=== PATIENT | female | born 1980 | race Caucasian/White ===

== ENCOUNTER 2017-12-31 09:16 | Emergency (ER) | payer SELFPAY ==
[~2017-12-31] VITALS: Ht 165.1 cm; Wt 73.5 kg
[2017-12-31 09:20] VITALS: BP 124/71
[2017-12-31] MEDS ORDERED: cefTRIAXone 1,000 MG in LIDOCAINE 1% ***ER ONLY *** 2.1 ML IM ONE (09:40)
[2017-12-31] MEDS ORDERED: KETOROLAC 60 MG/2 ML VIAL IM ONE (09:40)
[2017-12-31] MEDS ORDERED: cefTRIAXone 1,000 MG VIAL ONE (09:50)
[2017-12-31] MEDS ORDERED: LIDOCAINE MPF 1% - **ER/OR** 5 ML ONE (09:56)
[2017-12-31 10:15] VITALS: BP 122/69
== END 2017-12-31 10:15 | disposition home or self-care (01) ==
LOC: MED 09:16
DX: N30.90 Cystitis, unspecified without hematuria (principal)
CPT/HCPCS: 81002; 81025; 96372; 99284; J0696; J1885; J2001

== ENCOUNTER 2019-08-07 18:30 | Emergency (ER) | payer MEDICAID ==
[~2019-08-07] VITALS: Ht 162.6 cm; Wt 79.4 kg
[2019-08-07 19:02] VITALS: BP 152/79
--- NOTE | 2019-08-07 19:05 | NUR ---
URINE CUP HANDED TO PT FOR SAMPLE
[2019-08-07 19:45] LABS: APPEARANCE,URINE CLEAR (CLEAR); BILIRUBIN,URINE NEGATIVE (NEGATIVE); BLOOD, URINE NEGATIVE (NEGATIVE); COLOR,URINE YELLOW (YELLOW); LEUKOCYTE ESTERASE ,URINE 1+ (NEGATIVE); NITRITE, URINE NEGATIVE (NEGATIVE); UGLUCOSE NEGATIVE (NEGATIVE)
--- NOTE | 2019-08-07 19:45 | NUR ---
PT APPEARS TO BE IN MILD DISTRESS. PT C/O EPIGASTRIC PAIN THAT RADIATES TO BACK. PT ALSO C/O SOB. VERBAL ORDER FROM DR. SALDANA FOR EKG. PT VSS. PT STATES SOME NAUSEA. DENIES V/D. DENIES RECENT FEVER. DENIES N/V/D; SKIN IS PINK/WARM/DRY; AAOX4 WITH EVEN AND STEADY GAIT; LUNGS CLEAR BL; HR EVEN AND REGULAR; PT DENIES ANY FEVER, CP, OR COUGH AT THIS TIME; PATIENT STATES PAIN OF 10/10 AT THIS TIME; VSS; PATIENT POSITIONED FOR COMFORT; HOB ELEVATED; BEDRAILS UP X1; BED DOWN. ER MD MADE AWARE OF PT STATUS.
[2019-08-07 20:12] LABS: RBC,URINE 0 /HPF (0-5)
--- NOTE | 2019-08-07 21:45 | NUR ---
No changes from previous assessment. Pt appears to be in no distress. Waiting for Dr. Rosa to see patient.
[2019-08-07] MEDS ORDERED: KETOROLAC 30 MG/ML VIAL IVP ONE (21:55)
[2019-08-07 22:08] LABS: BASOPHILS % (AUTO) 0.5 % (0.0-2.0); EOSINOPHILS % (AUTO) 0.9 % (0.0-4.0); HEMATOCRIT 29.7 % (36-48); HEMOGLOBIN 9.2 g/dL (12.0-16.0); LYMPHOCYTES # (AUTO) 1.6 K/uL (2.5-16.5); LYMPHOCYTES % (AUTO) 29.9 % (20.5-51.1); MEAN CORPUSCULAR HEMOGLOBIN 23 pg (27-31); MEAN CORPUSCULAR HGB CONC 31 g/dL (33-37); MEAN CORPUSCULAR VOLUME 74.8 fL (80-94); MONOCYTES # (AUTO) 0.5 K/uL (0.8-1.0); MONOCYTES % (AUTO) 9.3 % (1.7-9.3); NEUTROPHILS # (AUTO) 3.2 K/uL (1.8-7.7); NEUTROPHILS % (AUTO) 59.4 % (42.2-75.2); PLATELET COUNT (AUTO) 292 K/uL (140-450); RED BLOOD CELL COUNT(AUTO) 3.97 MIL/uL (4.20-5.40); RED CELL DISTRIBUTION WIDTH 17.5 % (11.6-13.7); WHITE BLOOD COUNT (AUTO) 5.4 K/uL (4.8-10.8)
[2019-08-07] MEDS ORDERED: cefTRIAXone 1,000 MG VIAL ONE (22:10)
[2019-08-07 22:19] LABS: ANION GAP 12.7 (8-16); CREATININE 0.6 mg/dL (0.6-1.3); POTASSIUM 3.7 mmol/L (3.5-5.1)
[2019-08-07 22:25] LABS: ALBUMIN 3.6 g/dL (3.4-5.0); TOTAL BILIRUBIN 0.2 mg/dL (0.0-1.0)
--- NOTE | 2019-08-07 23:30 | NUR ---
Pt appears to be in no distress at this time. VSS. No changes from previous assessment. will continue to monior.
--- NOTE | 2019-08-08 01:30 | NUR ---
Dr. NATHAN DC pt. No changes from previous assessment.Patient discharged with v/s stable. Written and verbal after care instructions given and explained. Patient alert, oriented and verbalized understanding of instructions. Ambulatory with steady gait. All questions addressed prior to discharge. ID band removed. Patient advised to follow up with PMD. Rx of cipro given. Patient educated on indication of medication including possible reaction and side effects. Opportunity to ask questions provided and answered.
[2019-08-08 01:57] VITALS: BP 104/66
== END 2019-08-08 01:30 | disposition home or self-care (01) ==
LOC: EDBD 18:30 → MED 18:30
DX: N39.0 Urinary tract infection, site not specified (principal); R10.13 Epigastric pain; R10.11 Right upper quadrant pain; Z98.51 Tubal ligation status; R42 Dizziness and giddiness
CPT/HCPCS: 36415; 76705; 80053; 81001; 81025; 85025; 87086; 93005; 96365; 96375; 99284; J0696; J1885; Q0092

== ENCOUNTER 2022-05-06 22:49 | Emergency (ER) | payer MEDICAID ==
[~2022-05-06] VITALS: Ht 160 cm; Wt 81.6 kg
[2022-05-06 23:39] VITALS: BP 154/86
[2022-05-07 01:29] LABS: BASOPHILS % (AUTO) 0.2 % (0.0-2.0); EOSINOPHILS % (AUTO) 0.9 % (0.0-4.0); HEMATOCRIT 27.8 % (36-48); HEMOGLOBIN 8.9 g/dL (12.0-16.0); LYMPHOCYTES # (AUTO) 1.5 K/uL (2.5-16.5); LYMPHOCYTES % (AUTO) 30.3 % (20.5-51.1); MEAN CORPUSCULAR HEMOGLOBIN 23 pg (27-31); MEAN CORPUSCULAR HGB CONC 32 g/dL (33-37); MEAN CORPUSCULAR VOLUME 71.9 fL (80-94); MONOCYTES # (AUTO) 0.6 K/uL (0.8-1.0); MONOCYTES % (AUTO) 11.2 % (1.7-9.3); NEUTROPHILS # (AUTO) 2.9 K/uL (1.8-7.7); NEUTROPHILS % (AUTO) 57.4 % (42.2-75.2); PLATELET COUNT (AUTO) 282 K/uL (140-450); RED BLOOD CELL COUNT(AUTO) 3.87 MIL/uL (4.20-5.40); RED CELL DISTRIBUTION WIDTH 18.4 % (11.6-13.7); WHITE BLOOD COUNT (AUTO) 5.1 K/uL (4.8-10.8)
[2022-05-07 01:31] LABS: APPEARANCE,URINE SL CLOUDY (CLEAR); BILIRUBIN,URINE NEGATIVE (NEGATIVE); BLOOD, URINE NEGATIVE (NEGATIVE); COLOR,URINE YELLOW (YELLOW); LEUKOCYTE ESTERASE ,URINE NEGATIVE (NEGATIVE); NITRITE, URINE NEGATIVE (NEGATIVE); UGLUCOSE NEGATIVE (NEGATIVE)
[2022-05-07 01:48] LABS: ALBUMIN 3.4 g/dL (3.4-5.0); ANION GAP 9.9 (8-16); CARBON DIOXIDE 26.8 mmol/L (21-32); POTASSIUM 3.7 mmol/L (3.5-5.1); TOTAL BILIRUBIN 0.1 mg/dL (0.0-1.0)
--- NOTE | 2022-05-07 02:06 | NUR ---
Dr. Vasques examining patient.
[2022-05-07] MEDS ORDERED: KETOROLAC 30 MG/ML VIAL IM ONE (02:15)
[2022-05-07] MEDS ORDERED: HYDROcodone/APAP 5/325 MG 1 TAB TAB PO ONE (02:15)
--- NOTE | 2022-05-07 03:40 | NUR ---
Patient lying in bed, A/Ox4, chest rise and fall symmetrical, no c/o pain or s/s of distress.
--- NOTE | 2022-05-07 04:10 | NUR ---
Patient lying in bed, A/Ox4, chest rise and fall symmetrical, no c/o pain or s/s of distress.
[2022-05-07] MEDS ORDERED: NAPR-54 PO (04:42)
[2022-05-07] MEDS ORDERED: MAG-27 PO (04:42)
[2022-05-07 04:52] VITALS: BP 114/62
--- NOTE | 2022-05-07 05:12 | NUR ---
Patient lying in bed, A/Ox4, chest rise and fall symmetrical, no c/o pain or s/s of distress.
--- NOTE | 2022-05-07 06:06 | NUR ---
Patient lying in bed, A/Ox4, chest rise and fall symmetrical, no c/o pain or s/s of distress.
[2022-05-08 09:52] LABS: CREATININE 0.6 mg/dL (0.6-1.3)
== END 2022-05-07 04:55 | disposition home or self-care (01) ==
LOC: MED 22:49
DX: R10.11 Right upper quadrant pain (principal); Z79.899 Other long term (current) drug therapy
CPT/HCPCS: 36415; 76705; 80053; 81003; 81025; 85025; 96372; 99284; J1885; Q0092